=== PATIENT | male | born 1985 | race Caucasian/White ===

== ENCOUNTER 2018-04-20 13:20 | Emergency (ER) | payer BC ==
[2018-04-20] MEDS ORDERED: Sodium Chloride 0.9% 1,000 ML IV ONE ×2 (13:35→14:48)
[2018-04-20] MEDS ORDERED: Ondansetron 4 MG/2 ML SDV IVPUSH ONE (13:35)
[2018-04-20] MEDS ORDERED: diazePAM 5 MG/ML MDV IV ONE ×2 (13:35→14:48)
[2018-04-20] MEDS ORDERED: Sodium Chloride 0.9% 10 ML Syringe FLUSH PRN (13:36)
[2018-04-20] MEDS ORDERED: Sodium Chloride 0.9% 2.5 ML Syringe FLUSH PRN (13:36)
--- NOTE | 2018-04-20 13:38 | EDM.PDOC ---
ED HPI GENERAL MEDICAL PROBLEM - General Chief Complaint: Neuro Symptoms/Deficits Stated Complaint: DIZZY Time Seen by Provider: 04/20/18 13:22 Source of Information: Reports: Patient History Limitations: Reports: No Limitations - History of Present Illness INITIAL COMMENTS - FREE TEXT/NARRATIVE: History of present illness: []Patient started having vertigo at 4 PM yesterday that has been recurrent every time he has slight movement of his head. He denies any trauma, recent illnesses, numbness, tingling, ringing in his ears, blurry vision or headache. Patient states he does have tension in his neck and back from trying to keep his head still. Review of systems: As per history of present illness and below otherwise all systems reviewed and negative. Past medical history: As per history of present illness and as reviewed below otherwise noncontributory. Surgical history: As per history of present illness and as reviewed below otherwise noncontributory. Social history: No reported history of drug or alcohol abuse. Family history: As per history of present illness and as reviewed below otherwise noncontributory. Physical exam: General: Well developed, well nourished in NAD HEENT: Atraumatic, normocephalic, pupils reactive, negative for conjunctival pallor or scleral icterus, mucous membranes moist, throat clear, neck supple, nontender, trachea midline. Lungs: Clear to auscultation, breath sounds equal bilaterally, chest nontender. Heart: S1S2, regular, negative for clicks, rubs, or JVD. Abdomen: NABS, Soft, nondistended, nontender. Negative for masses or hepatosplenomegaly. Negative for costovertebral tenderness. Pelvis: Stable nontender. Genitourinary: Deferred. Rectal: Deferred. Extremities: Atraumatic, negative for cords or calf pain. Neurovascular unremarkable. Neuro: Awake, alert, oriented. Cranial nerves II through XII unremarkable. Cerebellum unremarkable. Motor and sensory unremarkable throughout. Exam nonfocal. Skin:warm and dry Diagnostics: CT head negative, CBC, chemistry Therapeutics: IV hydration, Valium, Zofran ED Course: Improved Impression: Benign positional vertigo Prescriptions: Meclizine, Zofran Plan: Follow-up with PMD. Definitive disposition and diagnosis as appropriate pending reevaluation and review of above. neck Pain Score (Numeric/FACES): 4 - Related Data Allergies Allergy/AdvReac Type Severity Reaction Status Date / Time No Known Allergies Allergy Verified 04/20/18 13:31 Home Meds: Home Meds Cyclobenzaprine [Flexeril] 10 mg PO BID PRN #12 tab 04/20/18 [Rx] Past Medical History - Past Health History Medical/Surgical History: Denies Medical/Surgical History ED ROS GENERAL - Review of Systems Review Of Systems: ROS reveals no pertinent complaints other than HPI. ED EXAM, NEURO - Physical Exam Exam: See Below (See history of present illness) Course - Vital Signs Last Recorded V/S: Last Vital Signs Temp 96.7 F 04/20/18 13:28 Pulse 82 04/20/18 16:10 Resp 18 04/20/18 13:28 BP 128/74 04/20/18 16:10 Pulse Ox 99 04/20/18 16:10 - Orders/Labs/Meds Orders: Active Orders 24 hr Category Date Time Status Saline Lock Insert [OM.PC] Stat Oth 04/20/18 13:35 Ordered Labs: Laboratory Tests 04/20/18 04/20/18 Range/Units 13:35 13:52 WBC 10.57 (4.0-11.0) K/uL RBC 4.71 (4.50-5.90) M/uL Hgb 14.2 (13.0-17.0) g/dL Hct 40.3 (38.0-50.0) % MCV 85.6 (80.0-98.0) fL MCH 30.1 (27.0-32.0) pg MCHC 35.2 (31.0-37.0) g/dL RDW Std Deviation 38.6 (28.0-62.0) fl RDW Coeff of [place] 13 (11.0-15.0) % Plt Count 279 (150-400) K/uL MPV 9.40 (7.40-12.00) fL Neut % (Auto) 66.1 (48.0-80.0) % Lymph % (Auto) 22.2 (16.0-40.0) % [place] % (Auto) 10.8 (0.0-15.0) % Eos % (Auto) 0.7 (0.0-7.0) % Baso % (Auto) 0.2 (0.0-1.5) % Neut # (Auto) 7.0 H (1.4-5.7) K/uL Lymph # (Auto) 2.4 (0.6-2.4) K/uL [place] # (Auto) 1.1 H (0.0-0.8) K/uL Eos # (Auto) 0.1 (0.0-0.7) K/uL Baso # (Auto) 0.0 (0.0-0.1) K/uL Nucleated RBC % 0.0 /100WBC Nucleated RBCs # 0 K/uL Sodium 140 (136-148) mmol/L Potassium 3.6 (3.5-5.1) mmol/L Chloride 104 (98-107) mmol/L Carbon Dioxide 28.3 (21.0-32.0) mmol/L BUN 17 (7.0-18.0) mg/dL Creatinine 1.0 (0.8-1.3) mg/dL Est Cr Clr Drug Dosing 93.93 mL/min Estimated GFR (MDRD) > 60.0 ml/min Glucose 97 (74-106) mg/dL Calcium 9.1 (8.5-10.1) mg/dL Total Bilirubin 0.5 (0.2-1.0) mg/dL AST 8 L (15-37) IU/L ALT 19 (14-63) IU/L Alkaline Phosphatase 55 (46-116) U/L Total Protein 6.6 (6.4-8.2) g/dL Albumin 3.7 (3.4-5.0) g/dL Globulin 2.9 (2.6-4.0) g/dL Albumin/Globulin Ratio 1.3 (0.9-1.6) Meds: Medications Discontinued Medications Generic Name Dose Route Start Last Admin Trade Name Freq PRN Reason Stop Dose Admin Diazepam 2.5 mg 04/20/18 14:00 04/20/18 13:59 Valium IV 04/20/18 14:01 Not Given ONETIME ONE Diazepam 2.5 mg 04/20/18 13:55 04/20/18 13:59 Valium IVPUSH 04/20/18 13:56 2.5 mg ONETIME ONE Administration Diazepam 2.5 mg 04/20/18 14:48 04/20/18 14:57 Valium IV 04/20/18 14:49 2.5 mg ONETIME ONE Administration Sodium Chloride 1,000 mls @ 999 mls/hr 04/20/18 13:35 04/20/18 13:47 Normal Saline IV 04/20/18 14:35 999 mls/hr .Bolus ONE Administration Sodium Chloride 1,000 mls @ 999 mls/hr 04/20/18 14:48 04/20/18 14:57 Normal Saline IV 04/20/18 15:48 999 mls/hr .Bolus ONE Administration Meclizine HCl 25 mg 04/20/18 14:48 04/20/18 14:57 Antivert PO 04/20/18 14:49 25 mg ONETIME ONE Administration Ondansetron HCl 4 mg 04/20/18 13:35 04/20/18 13:48 Zofran IVPUSH 04/20/18 13:36 4 mg ONETIME ONE Administration Sodium Chloride 10 ml 04/20/18 13:36 04/20/18 13:49 Saline Flush FLUSH 10 ml ASDIRECTED PRN Administration Keep Vein Open Sodium Chloride 2.5 ml 04/20/18 13:36 04/20/18 13:49 Saline Flush FLUSH 2.5 ml ASDIRECTED PRN Administration Keep Vein Open Departure - Departure Time of Disposition: 15:38 Disposition: Home, Self-Care 01 Condition: Good Clinical Impression: Benign positional vertigo Qualifiers: Laterality: unspecified laterality Qualified Code(s): H81.10 - Benign paroxysmal vertigo, unspecified ear - Discharge Information *PRESCRIPTION DRUG MONITORING PROGRAM REVIEWED*: No *COPY OF PRESCRIPTION DRUG MONITORING REPORT IN PATIENT ANALISA: No Prescriptions: Cyclobenzaprine [Flexeril] 10 mg PO BID PRN #12 tab PRN Reason: Pain Instructions: Vertigo, [id number] Referrals: Mario Gould MD [Primary Care Provider] - Forms: ED Department Discharge Additional Instructions: The following information is given to patients seen in the emergency department who are being discharged to home. This information is to outline your options for follow-up care. We provide all patients seen in our emergency department with a follow-up referral. The need for follow-up, as well as the timing and circumstances, are variable depending upon the specifics of your emergency department visit. If you don't have a primary care physician on staff, we will provide you with a referral. We always advise you to contact your personal physician following an emergency department visit to inform them of the circumstance of the visit and for follow-up with them and/or the need for any referrals to a consulting specialist. The emergency department will also refer you to a specialist when appropriate. This referral assures that you have the opportunity for follow-up care with a specialist. All of these measure are taken in an effort to provide you with optimal care, which includes your follow-up. Under all circumstances we always encourage you to contact your private physician who remains a resource for coordinating your care. When calling for follow-up care, please make the office aware that this follow-up is from your recent emergency room visit. If for any reason you are refused follow-up, please contact the [facility] Emergency Department at and asked to speak to the emergency department charge nurse. Take meclizine 25 mg every 8 hours for dizziness, Flexeril as directed for muscle tension. Increase fluid intake Follow-up with primary care [facility] [address] [place] [id number] - My Orders Last 24 Hours: My Active Orders 04/20/18 13:35 Saline Lock Insert [OM.PC] Stat - Assessment/Plan Last 24 Hours: My Active Orders 04/20/18 13:35 Saline Lock Insert [OM.PC] Stat
[2018-04-20 14:24] LABS: CHLORIDE,CL 104 mmol/L (98-107); SODIUM,NA 140 mmol/L (136-148)
[2018-04-20] MEDS ORDERED: Meclizine 25 MG Tab PO ONE (14:48)
--- NOTE | 2018-04-20 15:28 | CT ---
EXAMINATION: Non contrast CT head. Coronal and sagittal reformats. HISTORY: Pain FINDINGS: No evidence of intra or extra axial hemorrhage, mass, midline shift, hydrocephalus or edema. No hypoattenuation changes in the major vascular territories to suggest acute infarct. No abnormal intracranial calcifications are detected. No evidence of substantial vascular calcifications. Paranasal sinuses and mastoid air cells are well aerated without substantial findings. Orbits and globes are symmetric. Pituitary fossa appears unremarkable. Calvarium is intact. No evidence of skull fracture. IMPRESSION: No acute intracranial findings.
== END 2018-04-20 16:10 | disposition home or self-care (01) ==
LOC: MW.ED 13:20
DX: H81.10 Benign paroxysmal vertigo, unspecified ear (principal)
CPT/HCPCS: 36415; 70450; 80053; 85025; 96361; 96374; 96375; 96376; 99284; A9270; J2405; J3360; J7040

== ENCOUNTER 2021-04-03 10:54 | Emergency (ER) | payer BC, OTHER ==
[2021-04-03] MEDS ORDERED: Sodium Chloride 0.9% 1,000 ML IV ONE (11:22)
[2021-04-03] MEDS ORDERED: Ketorolac 30 MG/ML SDV IVPUSH ONE (11:25)
--- NOTE | 2021-04-03 11:25 | EDM.PDOC ---
ED HPI GENERAL MEDICAL PROBLEM - General Chief Complaint: Respiratory Problem Stated Complaint: COVID POS Time Seen by Provider: 04/03/21 11:00 Source of Information: Reports: Patient History Limitations: Reports: No Limitations - History of Present Illness INITIAL COMMENTS - FREE TEXT/NARRATIVE: Patient is a 35-year-old male who tested positive for Covid last Monday presents today for still not feeling well. He states his breathing is improving and his cough is improving just does not feel well not eating or drinking as much he does have any energy. Patient also has some left ear pain which is currently being treated for ear infection for as well. Headache Pain Score (Numeric/FACES): 5 - Related Data Allergies Allergy/AdvReac Type Severity Reaction Status Date / Time No Known Allergies Allergy Verified 04/03/21 11:02 Home Meds: Home Meds . [No Known Home Meds] 04/03/21 [History] Past Medical History - Past Health History Medical/Surgical History: Denies Medical/Surgical History HEENT History: Reports: None Cardiovascular History: Reports: None Respiratory History: Reports: None Gastrointestinal History: Reports: None Genitourinary History: Reports: None Musculoskeletal History: Reports: None Neurological History: Reports: Vertigo Psychiatric History: Reports: None Endocrine/Metabolic History: Reports: None Hematologic History: Reports: None Immunologic History: Reports: None Oncologic (Cancer) History: Reports: None Dermatologic History: Reports: None - Infectious Disease History Infectious Disease History: Reports: MRSA - Past Surgical History Head Surgeries/Procedures: Reports: None HEENT Surgical History: Reports: None Cardiovascular Surgical History: Reports: None Respiratory Surgical History: Reports: None GI Surgical History: Reports: None Male Surgical History: Reports: None Endocrine Surgical History: Reports: None Neurological Surgical History: Reports: None Musculoskeletal Surgical History: Reports: None Oncologic Surgical History: Reports: None Dermatological Surgical History: Reports: None Social & Family History - Family History Family Medical History: No Pertinent Family History - Caffeine Use Caffeine Use: Reports: Coffee, Energy Drinks - Recreational Drug Use Recreational Drug Use: No ED ROS GENERAL - Review of Systems Review Of Systems: See Below Constitutional: Reports: No Symptoms, Malaise HEENT: Reports: No Symptoms Respiratory: Reports: No Symptoms Cardiovascular: Reports: No Symptoms Endocrine: Reports: No Symptoms GI/Abdominal: Reports: No Symptoms : Reports: No Symptoms Musculoskeletal: Reports: No Symptoms Skin: Reports: No Symptoms Neurological: Reports: No Symptoms Psychiatric: Reports: No Symptoms Hematologic/Lymphatic: Reports: No Symptoms Immunologic: Reports: No Symptoms ED EXAM, GENERAL - Physical Exam Exam: See Below Exam Limited By: No Limitations General Appearance: Alert, WD/WN, No Apparent Distress Ears: No: Normal TMs (Left tympanic membrane scarring redness) Nose: Normal Inspection Head: Atraumatic, Normocephalic Neck: Normal Inspection Respiratory/Chest: No Respiratory Distress, Lungs Clear, Normal Breath Sounds Cardiovascular: Normal Peripheral Pulses, Regular Rate, Rhythm GI/Abdominal: Normal Bowel Sounds, Soft, Non-Tender Back Exam: Normal Inspection Extremities: Normal Inspection, Normal Range of Motion Neurological: Alert, Oriented, Normal Cognition, Normal Gait Course - Vital Signs Last Recorded V/S: Last Vital Signs Temp 97.8 F 04/03/21 11:03 Pulse 82 04/03/21 11:03 Resp 18 04/03/21 11:03 BP 120/73 04/03/21 11:03 Pulse Ox 100 04/03/21 11:03 - Orders/Labs/Meds Labs: Laboratory Tests 04/03/21 04/03/21 Range/Units 11:39 11:39 WBC 5.75 (4.0-11.0) K/uL RBC 4.61 (4.50-5.90) M/uL Hgb 13.8 (13.0-17.0) g/dL Hct 38.9 (38.0-50.0) % MCV 84.4 (80.0-98.0) fL MCH 29.9 (27.0-32.0) pg MCHC 35.5 (31.0-37.0) g/dL RDW Std Deviation 37.2 (28.0-62.0) fl RDW Coeff of Georgie 12 (11.0-15.0) % Plt Count 253 (150-400) K/uL MPV 9.50 (7.40-12.00) fL Neut % (Auto) 71.5 (48.0-80.0) % Lymph % (Auto) 14.1 L (16.0-40.0) % [place] % (Auto) 14.1 (0.0-15.0) % Eos % (Auto) 0.3 (0.0-7.0) % Baso % (Auto) 0.0 (0.0-1.5) % Neut # (Auto) 4.1 (1.4-5.7) K/uL Lymph # (Auto) 0.8 (0.6-2.4) K/uL [place] # (Auto) 0.8 (0.0-0.8) K/uL Eos # (Auto) 0.0 (0.0-0.7) K/uL Baso # (Auto) 0.0 (0.0-0.1) K/uL Nucleated RBC % 0.0 /100WBC Nucleated RBCs # 0 K/uL Sodium 140 (136-148) mmol/L Potassium 3.7 (3.5-5.1) mmol/L Chloride 103 (98-107) mmol/L Carbon Dioxide 27.1 (21.0-32.0) mmol/L BUN 11 (7.0-18.0) mg/dL Creatinine 0.8 (0.8-1.3) mg/dL Est Cr Clr Drug Dosing 114.09 mL/min Estimated GFR (MDRD) > 60.0 ml/min Glucose 107 H (74-106) mg/dL Calcium 8.3 L (8.5-10.1) mg/dL Total Bilirubin 0.6 (0.2-1.0) mg/dL AST 11 L (15-37) IU/L ALT 16 (14-63) IU/L Alkaline Phosphatase 45 L (46-116) U/L Total Protein 6.6 (6.4-8.2) g/dL Albumin 3.1 L (3.4-5.0) g/dL Globulin 3.5 (2.6-4.0) g/dL Albumin/Globulin Ratio 0.9 (0.9-1.6) Meds: Medications Discontinued Medications Generic Name Dose Route Start Last Admin Trade Name Freq PRN Reason Stop Dose Admin Sodium Chloride 1,000 mls @ 999 mls/hr 04/03/21 11:22 04/03/21 11:40 Normal Saline IV 04/03/21 12:22 999 mls/hr .BOLUS ONE Administration Ketorolac Tromethamine 30 mg 04/03/21 11:25 04/03/21 11:40 Ketorolac 30 Mg/Ml Sdv IVPUSH 04/03/21 11:26 30 mg ONETIME ONE Administration - Re-Assessments/Exams Free Text/Narrative Re-Assessment/Exam: 04/03/21 12:23 Patient labs reviewed x-ray reviewed patient looks well patient discharged home. Departure - Departure Time of Disposition: 12:23 Disposition: Home, Self-Care 01 Condition: Good Clinical Impression: COVID - Discharge Information *PRESCRIPTION DRUG MONITORING PROGRAM REVIEWED*: Not Applicable *COPY OF PRESCRIPTION DRUG MONITORING REPORT IN PATIENT ANALISA: Not Applicable Instructions: 10 Things You Can Do to Manage Your COVID-19 Symptoms at Home - [facility] (10/23/2020) Referrals: Mario Gould MD [Primary Care Provider] - Forms: ED Department Discharge Additional Instructions: You are seen today for symptoms related to Covid. We gave you some IV fluids to try to hydrate you up. Recommend continue to stay hydrated at home with water or other liquids. Please follow-up with your primary care physician. The following information is given to patients seen in the emergency department who are being discharged to home. This information is to outline your options for follow-up care. We provide all patients seen in our emergency department with a follow-up referral. The need for follow-up, as well as the timing and circumstances, are variable depending upon the specifics of your emergency department visit. If you don't have a primary care physician on staff, we will provide you with a referral. We always advise you to contact your personal physician following an emergency department visit to inform them of the circumstance of the visit and for follow-up with them and/or the need for any referrals to a consulting specialist. The emergency department will also refer you to a specialist when appropriate. This referral assures that you have the opportunity for follow-up care with a specialist. All of these measure are taken in an effort to provide you with optimal care, which includes your follow-up. Under all circumstances we always encourage you to contact your private physician who remains a resource for coordinating your care. When calling for follow-up care, please make the office aware that this follow-up is from your recent emergency room visit. If for any reason you are refused follow-up, please contact the [facility] Emergency Department at and asked to speak to the emergency department charge nurse. Please follow up with your primary care physician. If you do not have a primary care physician, see below: [facility] [address] [place] [address] Wendy Thompson [facility] [address] [place] [address] Sepsis Event Note (ED) - Evaluation Sepsis Screening Result: No Definite Risk - Focused Exam Vital Signs: Vital Signs Temp Pulse Resp BP Pulse Ox 04/03/21 11:03 97.8 F 82 18 120/73 100 - Assessment/Plan Plan: Patient is a 35-year-old male who presents today for not feeling well. Patient has positive Covid with yellow. Patient on exam 100% on room air. Patient will be IV fluids Toradol and reassess.
[2021-04-03 12:16] LABS: BLOOD UREA NITROGEN,BUN 11 mg/dL (7.0-18.0); CARBON DIOXIDE,CO2 27.1 mmol/L (21.0-32.0); CHLORIDE,CL 103 mmol/L (98-107); GLUCOSE RANDOM 107 mg/dL (74-106); POTASSIUM,K 3.7 mmol/L (3.5-5.1); SODIUM,NA 140 mmol/L (136-148)
--- NOTE | 2021-04-03 12:20 | CR ---
Indication: COVID Technique: Portable chest Comparison: Chest x-ray 12/28/2008 Findings: Normal cardiac mediastinal silhouette. Tiny density seen in the right upper lung without significant change probably related to small granulomas/prior granulomas disease ill-defined subtle right upper and bibasilar infiltrates which may reflect COVID. No effusion or pneumothorax. Dictated by Princess Freire MD @ 04/03/2021 12:18:10 PM (Electronically Signed)
== END 2021-04-03 12:53 | disposition home or self-care (01) ==
LOC: MW.ED 10:54
DX: U07.1 COVID-19 (principal)
CPT/HCPCS: 36415; 71045; 80053; 85025; 96374; 99284; J1885; J7030

== ENCOUNTER 2023-03-31 08:57 | Emergency (ER) | payer BC, OTHER ==
[2023-03-31] MEDS ORDERED: Sodium Chloride 0.9% 1,000 ML IV ONE (09:37)
[2023-03-31] MEDS ORDERED: Ketorolac 30 MG/ML SDV IVPUSH ONE (09:37)
[2023-03-31] MEDS ORDERED: Ondansetron 4 MG/2 ML SDV IVPUSH ONE (09:37)
[2023-03-31 09:56] LABS: BASOPHILS ABSOLUTE AUTO 0.02 K/uL (0.00-0.20); BASOPHILS PERCENT AUTO 0.3 % (0.0-1.0); EOSINOPHILS ABSOLUTE AUTO 0.21 K/uL (0.00-0.45); EOSINOPHILS PERCENT AUTO 2.7 % (0.0-6.0); HEMATOCRIT 37.7 % (42.0-52.0); HEMOGLOBIN 13.5 g/dL (14.0-18.0); IMMATURE GRAN ABSOLUTE AUTO 0.02 K/uL (0.00-0.05); IMMATURE GRAN PERCENT AUTO 0.3 % (0.0-0.4); LYMPHOCYTES ABSOLUTE AUTO 1.11 K/uL (1.00-4.80); LYMPHOCYTES PERCENT AUTO 14.2 % (24.0-44.0); MEAN CORPUSCULAR HEMOGLOBIN 30.5 pg (28.0-32.0); MEAN CORPUSCULAR HGB CONC 35.8 g/dL (32.0-36.0); MEAN CORPUSCULAR VOLUME 85.3 fL (83.0-99.0); MEAN PLATELET VOLUME 9.4 fL (9.4-12.4); MONOCYTES ABSOLUTE AUTO 0.47 K/uL (0.00-0.80); NEUTROPHILS ABSOLUTE AUTO 5.96 K/uL (1.80-7.70); NEUTROPHILS PERCENT AUTO 76.5 % (41.0-71.0); PLATELET COUNT,PLT 224 K/uL (150-400); RED BLOOD CELL COUNT 4.42 M/uL (4.52-5.90); WHITE BLOOD CELL COUNT,WBC 7.79 K/uL (3.9-11.3)
[2023-03-31 09:56] LABS: APPEARANCE,URINE CLEAR; BILIRUBIN,URINE NEGATIVE (NEGATIVE); COLOR,URINE YELLOW; GLUCOSE,URINE NEGATIVE (NEGATIVE); KETONES,URINE TRACE mg/dL (NEGATIVE); LEUKOCYTE ESTERASE,URINE NEGATIVE (NEGATIVE); NITRITE,URINE NEGATIVE (NEGATIVE); OCCULT BLOOD,URINE MODERATE (NEGATIVE); PROTEIN,URINE NEGATIVE (NEGATIVE); UROBILINOGEN,URINE 0.2 EU/dL (<2.0)
[2023-03-31 10:06] LABS: WBC,URINE 0-3 (0-5/HPF)
[2023-03-31 10:07] LABS: BACTERIA,URINE FEW (NEGATIVE); CALCIUM OXALATE CRYSTALS,URINE FEW (NEGATIVE); EPITHELIAL CELLS,URINE OCCASIONAL (NONE-FEW)
[2023-03-31 10:33] LABS: A/G RATIO 1.3 (0.9-1.6); ALBUMIN 3.6 g/dL (3.4-5.0); BILIRUBIN TOTAL 0.3 mg/dL (0.2-1.0); CALCIUM 8.3 mg/dL (8.5-10.1); CARBON DIOXIDE,CO2 28.1 mmol/L (21.0-32.0); EST CRCL DRUG DOSING (CG) 89.5 mL/min; MAGNESIUM 1.8 mg/dL (1.8-2.4); POTASSIUM,K 3.5 mmol/L (3.5-5.1); PROTEIN TOTAL,TP 6.3 g/dL (6.4-8.2)
== END 2023-03-31 13:32 | disposition home or self-care (01) ==
LOC: MW.ED 08:57
DX: N20.0 Calculus of kidney (principal); Z86.16 Personal history of COVID-19; Z79.899 Other long term (current) drug therapy
CPT/HCPCS: 36415; 74177; 80053; 81001; 83690; 83735; 85025; 96361; 96374; 96375; 99284; J1885; J2405; J7030

== ENCOUNTER 2024-12-23 11:03 | Emergency (ER) | payer BC, OTHER ==
[2024-12-23] MEDS: Diphtheria,Pertussis(Acell),Tetanus Vaccine 0.5 ML Syringe IM ONE (11:41)
== END 2024-12-23 12:40 | disposition home or self-care (01) ==
LOC: MW.ED 11:03
DX: S00.03XA Contusion of scalp, initial encounter (principal); J32.9 Chronic sinusitis, unspecified; Z75.3 Unavailability and inaccessibility of health-care facilities; Z79.899 Other long term (current) drug therapy; Z23 Encounter for immunization; W17.89XA Other fall from one level to another, initial encounter; Y93.89 Activity, other specified
CPT/HCPCS: 70450; 90471; 90715; 99283; A9270